=== PATIENT | male | born 1970 | race Caucasian/White ===

== ENCOUNTER 2020-10-17 21:34 | Emergency (ER) | payer BC, SELFPAY ==
--- NOTE | ~2020-10-17 | CT_ITS ---
EXAMINATION: CT CERVICAL SPINE WITHOUT CONTRAST CLINICAL INFORMATION: Fall. Trauma. COMPARISON: None TECHNIQUE: Axial images obtained through the cervical spine. Coronal and sagittal reformatted images are performed at CT scanner This CT examination was performed using dose optimization techniques as appropriate, variously including the following: *Automated exposure control *Adjustment of mA and/or kV according to patient size (this includes techniques or standardized protocols for targeted exams where dose is matched to indication/reason for exam; i.e. extremities or head) *Use of iterative reconstruction technique DLP: 508.73 mGy-cm FINDINGS: The cervical vertebrae have normal height and normal alignment. No fracture of the vertebrae. No prevertebral soft tissue swelling. Mild cervical disc height narrowing at C4-C5, C5-C6 and C6-C7 with small vertebral anterior endplate spurs at these disc levels. The facet joints are normal. No central canal stenosis. No focal disc protrusion. No paraspinal soft tissue abnormality. CT/CT cervical spine wo con IMPRESSION: No acute abnormality CT cervical spine. Mild degenerative spondylosis.
--- NOTE | ~2020-10-17 | CT_ITS ---
EXAMINATION: CT HEAD WITHOUT CONTRAST CLINICAL INFORMATION: Fall. No loss of consciousness COMPARISON: None TECHNIQUE: Contiguous axial imaging was performed from the skull base to vertex without intravenous administration of contrast. Coronal and sagittal reformatted images are performed at CT scanner This CT examination was performed using dose optimization techniques as appropriate, variously including the following: *Automated exposure control *Adjustment of mA and/or kV according to patient size (this includes techniques or standardized protocols for targeted exams where dose is matched to indication/reason for exam; i.e. extremities or head) *Use of iterative reconstruction technique DLP: 812.03 mGy-cm FINDINGS: There is no evidence of acute intracranial hemorrhage or territorial infarction. No abnormal mass effect or midline shift is seen. [place] to white matter differentiation is well preserved. No extra-axial fluid collections are identified. The ventricles are normal in size. There is no abnormal attenuation within the brain parenchyma. The osseous structures and soft tissues are normal. The mastoid air cells and visualized portions of the paranasal sinuses are well aerated. CT/CT head/brain wo con IMPRESSION: No acute intracranial pathology.
--- NOTE | ~2020-10-17 | CT_ITS ---
EXAMINATION: CONTRAST-ENHANCED CT OF THE CHEST; CONTRAST-ENHANCED CT OF THE ABDOMEN AND PELVIS INDICATION: Fall from ladder, right-sided chest pain COMPARISON: None TECHNIQUE: 85 mL Omnipaque 350 IV contrast was utilized. Multidetector helical imaging was performed through the chest, abdomen, and pelvis. Coronal and sagittal reformatted images were created at the technologist workstation. DLP: 2089 mGy-cm DOSE LOWERING TECHNIQUES: This CT examination was performed using dose optimization techniques as appropriate, variously including the following: - Automated exposure control - Adjustment of mA and/or kV according to patient size (this includes techniques or standardized protocols for targeted exams were dose is matched to indication/reason for exam; i.e. extremities or head) - Use of iterative reconstruction technique FINDINGS: Chest: There is mild dependent atelectasis bilaterally without additional consolidation. Several scattered 2-3 mm nodules are noted bilaterally, some of which are associated with fissures favoring lymph nodes while others are nonspecific; these are best seen on axial MIP series 15. No pneumothorax or pleural effusion. The visualized thyroid gland is unremarkable. There are subcentimeter mediastinal lymph nodes within the range of normal variation. Cardiac size is within normal limits; no significant pericardial effusion. Aorta appears unremarkable. No axillary lymphadenopathy is present. There is a minimally displaced posterior right 10th rib fracture. Abdomen/Pelvis: The liver is homogeneous in attenuation without intrahepatic biliary ductal dilatation. The gallbladder is unremarkable. The spleen, pancreas, and adrenal glands are within normal limits. Bilateral nephrograms are symmetric. No hydronephrosis. No obstructing renal or ureteral calculi are present. The urinary bladder is unremarkable. The prostate and seminal vesicles are unremarkable. The small and large bowel are unremarkable without evidence of obstruction or pericolonic inflammatory change. The appendix is unremarkable. No free fluid or free air is identified. There are scattered atherosclerotic calcifications. No retroperitoneal or pelvic lymphadenopathy is seen. Mild degenerative changes are present in the spine. CT/CT abdomen pelvis w con IMPRESSION: 1. Minimally displaced posterior right 10th rib fracture. 2. No additional acute traumatic findings identified in the chest/abdomen/pelvis. 3. Several scattered tiny bilateral lung nodules, nonspecific. According to the UPDATED 2017 Fleischner Society recommendations, the advised follow-up imaging for solid nodules < 6 mm is: LOW RISK PATIENT: No routine follow-up. HIGH RISK PATIENT: Optional CT at 12 months.
[2020-10-17 22:10] VITALS: BP 144/85; PULSE 85; RESP 16; TEMP 37.2; O2SAT 94
[2020-10-17 22:26] VITALS: PULSE 88; RESP 16; O2SAT 97
[2020-10-17 23:12] VITALS: BP 155/87; PULSE 90; RESP 16; O2SAT 97
--- NOTE | 2020-10-17 23:16 | ED.TRAUMA ---
HPI - Trauma General Chief Complaint: Extremity Injury, Upper Stated Complaint: Fall Time Seen by Provider: 10/17/20 23:14 Source: patient Mode of arrival: ambulatory History of Present Illness HPI narrative: 50-year-old male history high blood pressure and hyperlipidemia presents after having fallen from top step of 6 ft ladder and landing on to his right back/chest area without loss of consciousness and was ambulatory afterwards, but then states he began experiencing significant back/right-sided chest pain. Denies head/cervical pain. Related Data Allergies Allergy/AdvReac Type Severity Reaction Status Date / Time No Known Allergies Allergy Verified 10/17/20 22:09 Review of Systems Review of Systems: Splenic positives and negatives as stated in HPI 10 point review of systems is otherwise negative. [facility] Past Medical History Source: nursing notes reviewed Medical History Anxiety High cholesterol Hypertension Social History Social History Advance Directives: No Physical Exam Vital Signs: Vital Signs: Last Vital Signs Temp 98.9 F 10/17/20 22:10 Pulse 75 10/18/20 00:35 Resp 16 10/18/20 00:35 BP 120/67 10/18/20 00:35 Pulse Ox 97 10/17/20 23:12 Body Mass Index 0.3 Blood Thinners: None PRIMARY SURVEY A: Airway intact B: Bilateral, symmetrical breath sounds C: Bilateral DP/PT/femoral/radial palpable pulses symmetrical, ABD soft/ non-distended, PELVIS: stable/non-tender BP:120/67 D: GCS-15, motor and sensory grossly intact, FAST not performed E: No back abrasions, no cervical/thoracic/lumbar vertebral tenderness/step-off, CARMELLA- not performed SECONDARY SURVEY HEAD: NC/AT, no lacerations/contusions noted; EARS: no hemotympanum; EYES: 2mm PERRLA, EOMI NOSE: no deformity, wnl; OROPHARYNX: able to open mouth and tongue is midline without laceration FACE: without abrasions, lacerations, contusions, or ttp NECK: c-collar, no cervical spine tenderness; CHEST WALL/THORAX: no clavicle deformity or ttp, no sternum or rib deformity, no crepitus but tenderness to palpation at right lateral/posterior approximate rib 9-11 RUE: fROM at shoulder/elbow/wrist and neurovascular intact, no deformity, no abrasions/lacerations, cap refill <3s LUE: fROM at shoulder/elbow/wrist and neurovascular intact, no deformity, no abrasions/lacerations, cap refill <3s ABD: soft, non-tender, non-distended PELVIS: stable, non-tender RLE: fROM at hip/knee/ankle neurovascular intact LLE: fROM at hip/knee/ankle neurovascular intact ROS: 10 point review of systems has been completed. Please refer to HPI for pertinent negative and positives. A/P: 50-year-old male with history and clinical presentation consistent with fall from top step of 6 ft ladder without LOC and complaints of chest wall/back pain. - Labs (CBC, CMP, Troponin, PT/INR, PTT) - CT: head, c-spine, Thorax w contrast and T-spine recon, Abd/pelvis w/ contrast and L-spine recon Course Course Course Narrative: 50-year-old male with history and clinical presentation consistent with traumatic fall without LOC and suspect rib fracture and low clinical suspicion for pneumothorax. However, due to mechanism of injury will perform trauma scan. Review of all investigations positive for right posterior rib fracture. Patient informed of all results and findings and will be discharged with a pain regimen and instructions follow-up with primary care provider for further outpatient management. Patient was also provided with incentive spirometry in given instructions on appropriate use. MDM - Trauma Lab Data Result diagrams: 10/17/20 23:25 10/17/20 23:25 Labs: Lab Results 10/17/20 10/17/20 10/17/20 Range/Units 23:25 23:25 23:25 WBC 9.2 (4.8-10.8) X10*3/uL RBC 4.53 L (4.60-5.80) X10*6/uL Hgb 13.9 L (14.0-18.0) g/dl Hct 40.8 L (42-52) % MCV 90.1 (80-98) fL MCH 30.7 (27.0-33.0) pg MCHC 34.1 (31.0-36.0) g/dl RDW 12.4 (11.0-16.0) % Plt Count 215 (160-400) X10*3/uL MPV 10.6 (9.4-12.4) fL Immature Gran % (Auto) 0.4 (0.0-0.4) % Neut % (Auto) 75.1 H (45-73) % Lymph % (Auto) 16.1 L (20-40) % [place] % (Auto) 7.4 (2-11) % Eos % (Auto) 0.7 (0-4) % Baso % (Auto) 0.3 (0-2) % Lymph # (Auto) 1.5 (1.2-4.9) X10*3/uL [place] # (Auto) 0.7 (0.1-1.2) X10*3/uL Eos # (Auto) 0.1 (0.0-0.4) X10*3/uL Baso # (Auto) 0.0 (0.0-0.2) X10*3/uL Abs Immat Gran (auto) 0.04 H (0.00-0.03) X10*3/uL Absolute Neuts (auto) 6.9 (2.0-8.3) X10*3/uL Absolute Nucleated RBC 0.000 (0.0-0.012) X10*3/uL Nucleated RBC % (auto) 0.0 (0.0-0.2) /100WBC PT 11.5 (9.9-13.0) SEC INR 1.0 (0.9-1.1) Sodium 138 (135-145) mmol/L Potassium 4.0 (3.3-5.1) mmol/L Chloride 104 (96-108) mmol/L Carbon Dioxide 24 (22-29) mmol/L Anion Gap 14 (12-20) BUN 17 H (9-16) mg/dL Creatinine 1.49 H (0.5-1.4) mg/dL Estim Creat Clear Calc 87.5 Estimated GFR 50 Random Glucose 94 (60-115) mg/dL Calcium 9.4 (8.4-10.2) mg/dL Total Bilirubin 0.5 (0.0-1.0) mg/dL AST 23 (5-37) U/L ALT 37 (0-40) U/L Alkaline Phosphatase 78 (39-117) U/L Total Protein 6.9 (6.5-8.0) g/dL Albumin 4.5 (3.5-5.0) g/dL Discharge Plan Discharge Clinical Impression: Trauma, Fall, Closed rib fracture Patient Disposition: Home, Self-Care Instructions: Rib Fracture (ED), How to Use an Incentive Spirometer (ED) Additional Instructions: 1. Tylenol 1000 mg, orally, every 6 hours as needed for pain control. Do not exceed 4000 mg within 24 hours. 2. Ibuprofen 400 mg, orally with milk or food, every 6 hours as needed for pain control. Please increase your water intake while taking this medication and I recommend that you take the ibuprofen in combination with the Tylenol for added symptom relief. 3. Lidocaine patch, these are available [id number], apply to area of maximal tenderness as directed on the outside packaging. Number for please follow-up with your primary care provider for re-evaluation further outpatient management. Return to the ER for acute worsening of symptoms. Referrals: Physician,Unknown [Primary Care Provider] - 2 days Stand Alone Forms: Work/School Release
[2020-10-17 23:28] LABS: MANUAL DIFF FLAG NO
[2020-10-17 23:29] LABS: Basophils Percent Auto 0.3 % (0-2); Eosinophils Absolute Auto 0.1 X10*3/uL (0.0-0.4); Eosinophils Percent Auto 0.7 % (0-4); Hematocrit 40.8 % (42-52); Hemoglobin 13.9 g/dl (14.0-18.0); Imm Gran Abs Auto 0.04 X10*3/uL (0.00-0.03); Imm Gran Pct Auto 0.4 % (0.0-0.4); Lymphocytes Absolute Auto 1.5 X10*3/uL (1.2-4.9); Lymphocytes Percent Auto 16.1 % (20-40); Mean Corpuscular HGB Conc 34.1 g/dl (31.0-36.0); Mean Corpuscular Hemoglobin 30.7 pg (27.0-33.0); Mean Corpuscular Volume 90.1 fL (80-98); Mean Platelet Volume 10.6 fL (9.4-12.4); Monocytes Absolute Auto 0.7 X10*3/uL (0.1-1.2); Monocytes Percent Auto 7.4 % (2-11); Neutrophils Absolute Auto 6.9 X10*3/uL (2.0-8.3); Neutrophils Percent Auto 75.1 % (45-73); Platelet Count 215 X10*3/uL (160-400); Red Blood Count 4.53 X10*6/uL (4.60-5.80); Red Cell Distribution Width 12.4 % (11.0-16.0); White Blood Count 9.2 X10*3/uL (4.8-10.8)
[2020-10-17] MEDS: Ketorolac Tromethamine 15 MG/ML VIAL IVPUSH (23:30)
[2020-10-17] MEDS: Acetaminophen 325 MG TABLET 975 MG PO (23:30)
[2020-10-17 23:34] LABS: Prothrombin Time 11.5 SEC (9.9-13.0)
--- NOTE | 2020-10-17 23:35 | PC.NURSE ---
pt taken to rad via stretcher.
[2020-10-17] MEDS: iohexoL 350 MG/ML 100 ML INFUS..BTL 85 ML IV (23:52)
[2020-10-17 23:59] LABS: Alanine Aminotransferase 37 U/L (0-40); Albumin Level 4.5 g/dL (3.5-5.0); Alkaline Phosphatase 78 U/L (39-117); Anion Gap 14 (12-20); Aspartate Amino Transferase 23 U/L (5-37); Bilirubin Total 0.5 mg/dL (0.0-1.0); Blood Urea Nitrogen 17 mg/dL (9-16); Calcium 9.4 mg/dL (8.4-10.2); Carbon Dioxide 24 mmol/L (22-29); Chloride 104 mmol/L (96-108); Creatinine Clr Calc Pharmacy 87.5; Estimated Glomerular Filt Rate 50; Glucose Random 94 mg/dL (60-115); Sodium 138 mmol/L (135-145); Total Protein 6.9 g/dL (6.5-8.0)
[2020-10-18 00:33] VITALS: BP 120/67; PULSE 80; RESP 16
[2020-10-18 00:35] VITALS: BP 120/67; PULSE 75; RESP 16
[2020-10-18] MEDS: 0.9 % Sodium Chloride 1,000 ML 999 ML IV (00:36)
[2020-10-18] MEDS: Lidocaine 4 % Patch ADH..PATCH 1 PATCH TRANSDERMA (02:07)
== END 2020-10-18 02:08 | disposition home or self-care (01) ==
PROVIDERS: Emergency Provider Student in an Organized Health Care Education/Training Program
DX: S22.31XA Fracture of one rib, right side, initial encounter for closed fracture (principal); I10 Essential (primary) hypertension; W11.XXXA Fall on and from ladder, initial encounter; Y93.9 Activity, unspecified; Y92.9 Unspecified place or not applicable; Y99.9 Unspecified external cause status
CPT/HCPCS: 36415; 70450; 71260; 72125; 74177; 80053; 85025; 85610; 96361; 96374; 99285; J1885; Q9967